=== PATIENT | female | born 2005 | race Caucasian/White ===

== ENCOUNTER 2023-06-10 20:02 | Emergency (ER) | payer SELFPAY ==
[~2023-06-10] VITALS: Ht 167.6 cm; Wt 62.0 kg
[2023-06-10 20:13] VITALS: TEMP 98.7; O2SAT 100
[2023-06-10] MEDS ORDERED: DIPHENHYDRAMINE 50MG CAPSULE PO ONE (21:00)
[2023-06-10] MEDS ORDERED: CIPR750T4 MT (21:04)
[2023-06-10 21:25] VITALS: BP 119/65; PULSE 102; RESP 15
[2023-06-10] MEDS: PREDNISONE 20MG TABLET PO STA (21:28)
[2023-06-10] MEDS: DIPHENHYDRAMINE 25MG CAPSULE PO NR (21:28)
== END 2023-06-10 21:43 | disposition home or self-care (01) ==
LOC: ER 20:02
DX: H61.002 Unspecified perichondritis of left external ear (principal); Z88.8 Allergy status to other drugs, medicaments and biological substances; Z91.018 Allergy to other foods
CPT/HCPCS: 99283; Q0163; J7512